=== PATIENT | male | born 1955 | race Caucasian/White ===

== ENCOUNTER → 2016-07-25 | Outpatient (CLI) | payer OTHER ==
[~2016-07-25] MED LIST: AVAPRO300 MG PO; BACTRIM,SEPT1 TABLET PO; FLEXERIL10 MG PO; NAPROSYN500 MG PO; PERCOCET 5/31 TABLET PO; SINGULAIR10 MG PO
== END | disposition home or self-care (01) ==
LOC: CDC 10:56
DX: Z01.810 Encounter for preprocedural cardiovascular examination (principal); G56.01 Carpal tunnel syndrome, right upper limb
CPT/HCPCS: 93000